=== PATIENT | female | born 1945 | race Caucasian/White ===

== ENCOUNTER 2016-07-19 11:34 | Inpatient (IN) | payer MEDICARE, BC ==
[~2016-07-19 11:34] MED LIST: ADVAIR 2501 DISK W/D; ADVICOR PO; ALENDRONATE SOD70 M2 PO; ALLERGY RELIEF180 M1 PO; AMBIEN10 M1 PO; ASTELIN137 MCG; BENZONATATE200 M1 PO; CELEBREX200 MG; CHOLESTEROL MED; CYTOMEL5 MC1 PO; FENOFIBRATE150 MG PO; FLONASE ALLERG9.9 ML; GLYCOPYRROLATE PO; HYZAAR 100-25 T1 TAB; HYZAAR 50-12.51 TA1 PO; LIVALO4 M1 PO; LOSARTAN-HCTZ1 EAC4 PO; LYRICA75 MG; MELOXICAM15 M1 PO; MUCINEX DM ER1 EAC1 PO; NAPROSYN500 M1 PO; NASONEX17 GM; NEURONTIN100 M1 PO; OMEPRAZOLE40 M2 PO; PROPOXY-N-APAP1 TAB; SYNTHROID100 MC1 PO; TUSSIONEX PENN115 ML PO; TYLENOL500 MG; ULTRAM ER100 MG PO; ULTRAM50 MG; VALTREX500 M1 PO; VYTORIN 10/80 T1 TAB; ZYRTEC10 MG
[2016-07-19] MEDS ORDERED: VITAMIN D31000 UNI4 PO (13:51)
[2016-07-19] MEDS ORDERED: TYLENOL ARTHRI650 M1 PO (13:52)
[2016-07-19] MEDS ORDERED: ACID CONTROL150 M2 PO (15:34)
[2016-07-19 17:01] LABS: BASO % 0.5 % (0-2); EOS % 2.3 % (0-7); EOSINOPHIL ABSOLUTE COUNT 0.2 tho/cmm (0.0-0.7); HCT-HEMATOCRIT 38.7 % (34.0-49.0); HGB-HEMOGLOBIN 14.1 gm/dl (12.0-15.5); IMMATURE GRANULOCYTES ABSOLUTE 0.01 tho/cmm (0-0.03); IMMATURE GRANULOCYTES PERCENT 0.2 % (0-0.3); LYMPH % 38.9 % (20-45); LYMPH ABSOLUTE COUNT 2.6 tho/cmm (0.8-4.5); MCH (MEAN CORPUSCULAR HGB) 33.3 pg (28.0-32.0); MCHC MEAN CORPUSCULAR HGB CONC 36.4 % (32.0-36.0); MCV (MEAN CELL VOLUME) 91.5 fl (82.0-96.0); MEAN PLATELET VOLUME 8.7 cmc (9.4-12.4); MONO % 11.7 % (0-12); MONOCYTE ABSOLUTE COUNT 0.8 tho/cmm (0.0-1.2); NEUTROPHIL ABSOLUTE COUNT 3.1 tho/cmm (1.6-8.0); NEUTROPHIL-AUTOMATED 3.1 tho/cmm (1.6-8.0); NEUTROPHILS % 46.4 % (40-80); PLATELET COUNT 320 tho/cmm (150-450); RED BLOOD COUNT 4.23 mil/cmm (4.00-5.20); RED CELL DISTRIBUTION WIDTH 12.2 % (12.4-16.4); WHITE BLOOD COUNT 6.6 tho/cmm (4.0-10.0)
[2016-07-19 17:19] LABS: ALB/GLOB RATIO 1.7 (0.8-2.0); ALBUMIN 4.6 g/dl (3.5-5.0); ALKALINE PHOSPHATASE 77 U/L (33-138); ALT/SGPT 27 U/L (12-78); ANION GAP 14 mmol/L (0-20); AST/SGOT 21 U/L (10-40); BILIRUBIN,TOTAL 0.5 mg/dl (0-1.5); BLOOD UREA NITROGEN 10 mg/dl (6-24); CALCIUM 8.7 mg/dl (8.5-10.5); CARBON DIOXIDE-VENOUS 26 mmol/L (22-32); CHLORIDE 91 mmol/l (96-110); CREATININE 0.59 mg/dl (0.50-1.10); ESR-ERYTHROCYTE SED RATE 6 mm/hr (0-30); GLUCOSE 94 mg/dL (70-110); MAGNESIUM 1.9 mg/dl (1.8-2.6); POTASSIUM 3.4 mmol/L (3.7-5.1); SODIUM 128 mmol/L (135-145); eGFR VALUE FOR BLACK >90 mL/Min
[2016-07-19 17:24] LABS: TSH-THYROID STIMULATING HORM. 0.25 uIU/ml (0.40-3.80)
[2016-07-19 20:45] LABS: ABG CO2 ARTERIAL 19 mmol/L (21-27); ARTERIAL BLD GAS O2 SATURATION 100 % (95-98); ARTERIAL BLOOD GAS PCO2 27 mmHg (32-45); BICARBONATE 22 mmol/L (21-28); BLOOD GAS BASE EXCESS 1 mM/L (-/+3); PH 7.54 Units (7.35-7.45)
[2016-07-19 20:46] LABS: ARTERIAL PO2 136 mmHg (70-100)
[2016-07-19 20:46] LABS: CSF GLUCOSE 54 mg/dl (40-75)
[2016-07-19 20:48] LABS: CSF APPEARANCE BLOODY (CLEAR); CSF COLOR RED (COLORLESS); CSF TUBE NUMBER CSF TUBE 1; CSF VOLUME 0.5 ml
[2016-07-19 20:58] LABS: CSF SUPERNATANT PINK
[2016-07-19 21:04] LABS: CSF RBC CT 115000 cmm (0)
[2016-07-19 21:05] LABS: CSF WBC CT 54 cmm (0-10)
[2016-07-20 06:42] LABS: BLOOD UREA NITROGEN 8 mg/dl (6-24); CALCIUM 8.5 mg/dl (8.5-10.5); CARBON DIOXIDE-VENOUS 24 mmol/L (22-32); CHLORIDE 100 mmol/l (96-110); CREATINE PHOSPHOKINASE (CPK) 118 U/L (21-215); CREATININE 0.48 mg/dl (0.50-1.10); GLUCOSE 89 mg/dL (70-110); SODIUM 133 mmol/L (135-145); eGFR VALUE FOR BLACK >90 mL/Min
[2016-07-20 06:44] LABS: ANION GAP 13 mmol/L (0-20); C-REACTIVE PROTEIN <0.3 mg/dl (0-0.9); POTASSIUM 3.8 mmol/L (3.7-5.1)
[2016-07-21 06:15] LABS: URINE BILIRUBIN NEGATIVE (NEG); URINE BLOOD NEGATIVE (NEG); URINE GLUCOSE (UA) NEGATIVE (NEG); URINE KETONE NEGATIVE (NEG); URINE LEUKOCYTE ESTERASE POSITIVE (NEG); URINE NITRITE NEGATIVE (NEG); URINE PROTEIN NEGATIVE (NEG); URINE SPECIFIC GRAVITY 1.005 (1.003-1.030)
[2016-07-21 06:21] LABS: URINE APPEARANCE CLEAR; URINE COLOR PALE YELLOW
[2016-07-21 06:51] LABS: URINE EPITHELIAL CELLS 0 /[HPF] (0-10); URINE RBC 0 /[HPF] (0-5); URINE WBC RARE /[HPF] (0-5)
[2016-07-21 07:04] LABS: URINE CREATININE-RANDOM 23 mg/dl (30-125); URINE SODIUM-RANDOM 55 mmol/L (20-110)
[2016-07-21 07:19] LABS: URINE PRT/CR RATIO 0.21 Ratio (0.0-0.20); URINE TOTAL PROTEIN-RANDOM <5.0 mg/dl (<11.8)
[2016-07-22] MEDS ORDERED: ROBINUL1 M1 PO (13:59)
[2016-07-22] MEDS ORDERED: ATIVAN0.5 M1 PO (14:00)
[2016-07-22] MEDS ORDERED: NEURONTIN100 M1 PO (14:01)
[2016-07-22] MEDS ORDERED: COZAAR50 M1 PO (14:08)
== END 2016-07-22 16:05 | DRG 896 ==
LOC: 5WE 11:34
PROVIDERS: ADMIT Family Medicine
PROC: 009U3ZX Drainage of Spinal Canal, Percutaneous Approach, Diagnostic (ICD-10-PCS; principal; 2016-07-19)
DX: F19.939 Other psychoactive substance use, unspecified with withdrawal, unspecified (principal); G93.40 Encephalopathy, unspecified; E87.1 Hypo-osmolality and hyponatremia; J84.10 Pulmonary fibrosis, unspecified; E03.9 Hypothyroidism, unspecified; G47.00 Insomnia, unspecified; G43.909 Migraine, unspecified, not intractable, without status migrainosus; M79.1 Myalgia; M25.50 Pain in unspecified joint; E78.5 Hyperlipidemia, unspecified; I10 Essential (primary) hypertension; Z85.42 Personal history of malignant neoplasm of other parts of uterus; Z87.891 Personal history of nicotine dependence; Z88.8 Allergy status to other drugs, medicaments and biological substances; Z91.040 Latex allergy status; R20.8 Other disturbances of skin sensation; Z98.1 Arthrodesis status
CPT/HCPCS: A9577; J2060; J7030